=== PATIENT | male | born 1995 | race Caucasian/White ===

== ENCOUNTER 2017-07-06 19:54 | Emergency (ER) | payer OTHER ==
[~2017-07-06] VITALS: Ht 172.7 cm; Wt 60.0 kg
[2017-07-06 19:57] VITALS: BP 134/74
[2017-07-06] MEDS ORDERED: ALBUTEROL SULFATE 2.5 MG/3 ML ONE (21:17)
[2017-07-06] MEDS ORDERED: IBUPROFEN 200 MG TABLET ONE (21:28)
[2017-07-06] MEDS ORDERED: ALBUTEROL SULFATE 2.5 MG/3 ML NPPB ONE (21:30)
[2017-07-06] MEDS ORDERED: IBUPROFEN 200 MG TABLET PO ONE (22:00)
== END 2017-07-06 21:41 | disposition home or self-care (01) ==
LOC: ED 21:35
DX: J20.8 Acute bronchitis due to other specified organisms (principal); B96.89 Other specified bacterial agents as the cause of diseases classified elsewhere; F17.200 Nicotine dependence, unspecified, uncomplicated
CPT/HCPCS: 71046; 94640; 99284; J7613

== ENCOUNTER 2017-07-07 11:28 | Emergency (ER) | payer SELFPAY ==
[~2017-07-07] VITALS: Ht 171.4 cm; Wt 59.1 kg
[2017-07-07] MEDS ORDERED: IBUPROFEN 200 MG TABLET ONE (13:09)
[2017-07-07 13:29] VITALS: BP 121/82
[2017-07-07] MEDS ORDERED: IBUPROFEN 200 MG TABLET PO ONE (13:30)
== END 2017-07-07 13:32 | disposition home or self-care (01) ==
LOC: ED 13:25
DX: G89.11 Acute pain due to trauma (principal); M25.521 Pain in right elbow
CPT/HCPCS: 99284